=== PATIENT | female | born 2000 | race African-American/Black ===

== ENCOUNTER 2018-07-11 13:59 | Emergency (ER) | payer SELFPAY ==
[~2018-07-11] VITALS: Ht 154.9 cm; Wt 52.0 kg
[2018-07-11 14:03] VITALS: BP 107/77
== END 2018-07-11 16:48 | disposition home or self-care (01) ==
LOC: ER 13:59
DX: M94.0 Chondrocostal junction syndrome [Tietze] (principal)
CPT/HCPCS: 99282; 99283

== ENCOUNTER 2019-03-02 23:54 | Emergency (ER) | payer MEDICAID ==
[~2019-03-02] VITALS: Ht 162.6 cm; Wt 59.0 kg
[2019-03-03 01:34] VITALS: BP 103/65
== END 2019-03-03 01:33 | disposition home or self-care (01) ==
LOC: ER 23:54
DX: R21 Rash and other nonspecific skin eruption (principal); R03.0 Elevated blood-pressure reading, without diagnosis of hypertension
CPT/HCPCS: 81025; 99282

== ENCOUNTER 2019-04-15 10:27 | Emergency (ER) | payer MEDICAID ==
[~2019-04-15] VITALS: Ht 162.6 cm; Wt 60.0 kg
[2019-04-15] MEDS ORDERED: IBUPROFEN 600MG TABLET PO ONE (11:30)
[2019-04-15 11:50] VITALS: BP 110/75
== END 2019-04-15 11:52 | disposition home or self-care (01) ==
LOC: ER 10:27
DX: M54.2 Cervicalgia (principal); L81.8 Other specified disorders of pigmentation
CPT/HCPCS: 81025; 99283

== ENCOUNTER 2021-06-25 12:15 | Emergency (ER) | payer MEDICAID ==
[~2021-06-25] VITALS: Ht 162.6 cm; Wt 63.0 kg
[2021-06-25 12:29] VITALS: BP 106/73
[2021-06-25] MEDS: ACETAMINOPHEN WITH CODEINE 300/30MG TABLET PO ONE ×2 (15:51→15:56)
[2021-06-25] MEDS ORDERED: NAPR-681 MT (16:24)
== END 2021-06-25 18:06 | disposition home or self-care (01) ==
LOC: ER 12:15
DX: S63.591A Other specified sprain of right wrist, initial encounter (principal); W31.89XA Contact with other specified machinery, initial encounter; Y93.89 Activity, other specified; Y92.89 Other specified places as the place of occurrence of the external cause; Y99.0 Civilian activity done for income or pay
CPT/HCPCS: 29125; 73110; 99283

== ENCOUNTER 2022-03-14 08:35 | Emergency (ER) | payer OTHER, MEDICAID ==
[~2022-03-14] VITALS: Ht 165.1 cm; Wt 57.0 kg
[~2022-03-14 08:35] MED LIST: NAPR-681 MT
[2022-03-14 08:39] VITALS: BP 138/65
[2022-03-14 09:14] LABS: CLARITY URINE CLEAR (CLEAR); COLOR URINE YELLOW (YELLOW); KETONES URINE NEGATIVE (NEGATIVE); LEUKOCYTE ESTERASE URINE 1+ (NEGATIVE); NITRITE URINE NEGATIVE (NEGATIVE); OCCULT BLOOD URINE NEGATIVE (NEGATIVE); PH URINE 5.5 (4.5-8.0); PROTEIN URINE NEGATIVE (NEGATIVE); SPECIFIC GRAVITY URINE 1.018 (1.005-1.030)
[2022-03-14] MEDS ORDERED: CEFTRIAXONE SODIUM 500 MG/VIAL IM ONE (09:30)
[2022-03-14] MEDS ORDERED: DOXYCYCLINE HYCLATE 100MG CAPSULE PO ONE (09:30)
[2022-03-14] MEDS ORDERED: DOXY100C5 MT (09:45)
[2022-03-14] MEDS ORDERED: METR500T MT (09:46)
[2022-03-16 06:11] LABS: NEISSERIA GONORRHOEAE NAA Negative (Negative)
== END 2022-03-14 10:17 | disposition home or self-care (01) ==
LOC: ER 08:35
DX: A56.02 Chlamydial vulvovaginitis (principal); F64.0 Transsexualism; Z87.890 Personal history of sex reassignment
CPT/HCPCS: 81003; 87210; 87491; 87591; 96372; 99283; J0696